=== PATIENT | male | born 1990 | race Caucasian/White ===

== ENCOUNTER 2020-12-15 11:45 | Emergency (ER) | payer OTHER ==
[~2020-12-15] VITALS: Ht 182.9 cm; Wt 79.4 kg
[2020-12-15] MEDS ORDERED: PEPCID AC20 MG PO (16:47)
[2020-12-15] MEDS ORDERED: BUTALBIT-ACETA1 EACH PO (16:47)
== END 2020-12-15 17:13 | disposition home or self-care (01) ==
LOC: ER 11:45
DX: A90 Dengue fever [classical dengue] (principal); B34.9 Viral infection, unspecified; Z03.818 Encounter for observation for suspected exposure to other biological agents ruled out